=== PATIENT | male | born 1950 | race Caucasian/White ===

== ENCOUNTER 2022-02-28 09:30 | Outpatient (CLI) | payer MEDICARE, BC, SELFPAY ==
[2022-02-28 11:40] LABS: Albumin* 4.5 g/dL (3.3-5.0); Chloride* 105 mmol/L (96-114)
[2022-02-28 11:41] LABS: Sodium* 139 mmol/L (135-149)
[2022-02-28 11:43] LABS: Alkaline Phosphatase* 77 U/L (40-150); Aspartate Amino Transferase* 28 U/L (12-35); Bilirubin Total* 0.7 mg/dL (0.1-1.5); Blood Urea Nitrogen* 12 mg/dL (7-30); Carbon Dioxide* 25 mmol/L (20-32); Cholesterol* 207 mg/dL (90-199); Creatinine* 0.8 mg/dL (0.5-1.5); Estimated Glomerular Filt Rate 95 ml/min; Glucose* 99 mg/dL (60-115); Total Protein* 7.5 g/dL (6.0-8.3); Triglycerides* 104 mg/dL (40-149)
[2022-02-28 11:44] LABS: Alanine Aminotransferase* 23 U/L (4-50); Calcium* 9.1 mg/dL (8.4-10.6); HDL Cholesterol* 63 mg/dL (>=40); LDL Cholesterol Calculated 123 mg/dL (<100)
== END 2022-02-28 09:31 | disposition home or self-care (01) ==
LOC: NFLDREF 09:31
PROVIDERS: PCP Family Medicine; Visit Provider Family Medicine
DX: Z00.00 Encounter for general adult medical examination without abnormal findings (principal); N40.0 Benign prostatic hyperplasia without lower urinary tract symptoms; E78.5 Hyperlipidemia, unspecified
CPT/HCPCS: 80053; 80061; 84153

== ENCOUNTER 2022-06-29 10:00 | Outpatient (CLI) | payer MEDICARE, BC, SELFPAY ==
--- NOTE | 2022-06-29 10:15 | CRLHL7_ITS ---
For Patients: As a result of the Century Cures Act, medical imaging exams and procedure reports are released immediately into your electronic medical record. You may view this report before your referring provider. If you have questions, please contact your health care provider. INDICATION: Lumbar radiculopathy. TECHNIQUE: Sagittal and axial T1, sagittal and axial T2 and sagittal STIR images are obtained. FINDINGS: The sagittal alignment lumbar spine within normal limits. No compression fractures. No paraspinal mass or abnormal fluid collection. The conus medullaris appears normal and terminates normally at the L1 level. At T12-L1 anterior marginal osteophytes. No posterior disc herniation or stenosis the spinal canal or neural foramen. No disc herniation or stenosis at the L1-2 or L2-3 levels. At L3-4 degenerative disc desiccation and mild annular bulging. Moderate facet arthropathy with some thickening of ligamentum flavum. The eyes mild spinal canal narrowing lateral recesses and the neural foramen are adequately patent. At L4-5 degenerative disc desiccation. Circumferential annular bulge with central disc protrusion. Severe bilateral facet arthropathy with anterior facet spurs and prominent thickening of ligamentum flavum combine to cause severe central spinal canal stenosis. There is lateral recess stenosis with impingement of traversing bilateral L5 nerve roots. Mild to moderate bilateral neural foraminal narrowing as well. At L5-S1 normal disc height and disc hydration. No disc herniation. Moderate bilateral facet arthropathy without stenosis of the spinal canal or neural foramen. Mild degenerative changes of bilateral sacroiliac joints. IMPRESSION: 1. At L4-5, there is severe central spinal canal stenosis, lateral recess stenosis with impingement of traversing nerve roots. 2. Mild central stenosis at L3-4. 3. Multilevel lumbar facet arthropathy is most severe at L4-5. Dictated by Saji Vasques MD @ 06/29/2022 12:22:52 PM (Electronically Signed)
== END 2022-06-29 10:01 | disposition home or self-care (01) ==
LOC: MRI 10:03
PROVIDERS: PCP Family Medicine; Visit Provider Family Medicine
DX: M54.16 Radiculopathy, lumbar region (principal); M48.061 Spinal stenosis, lumbar region without neurogenic claudication
CPT/HCPCS: 72148

== ENCOUNTER 2022-07-21 10:19 | Outpatient (CLI) | payer MEDICARE, BC, SELFPAY | END 2022-07-21 10:20 | disposition home or self-care (01) | PROVIDERS: PCP Family Medicine; Visit Provider Surgery | DX: K22.70 Barrett's esophagus without dysplasia (principal); K22.89 Other specified disease of esophagus; K44.9 Diaphragmatic hernia without obstruction or gangrene | CPT/HCPCS: 43239; 88305; J1200; J2250; J3010 ==

== ENCOUNTER 2022-09-15 08:45 | Outpatient (RCR) | payer MEDICARE, BC, SELFPAY ==
--- NOTE | 2022-08-02 07:15 | PT.OPEX ---
[facility] Eval PT [facility] Outpatient Eval Start: 08/01/22 13:44 Freq: Status: Active Protocol: Document 08/01/22 13:44 ARR (Rec: 08/01/22 14:48 ARR [id number]) E-signed By Yani Wang DPT Physical Therapy Outpatient Evaluation Insurance Information Insurance Name Medicare B,[employer] Medical Diagnosis M54.16 lumbar radiculopathy Treating Diagnosis M54.16 lumbar radiculopathy M48.06 lumbar spinal stenosis M79.605 pain in left leg M79.604 pain in right leg Subjective Subjective Had PT last November - helped but as condition worsened so last Apr symptoms were unbearable. Last Monday had x 2 epidural injections at [place]. Monday had no leg pain, slight tingling. Today symptoms have returned slightly more. Last Spring symptoms were primarily in back. Currently even standing a few minutes legs will hurt and get tingling/ hurt. Is active biking and walking but now can hardly walk for more than 5 minutes. Could stand <1 minutes. Sitting or supine minimal to no pain. Denies bucking or giving way no changes in bowel or bladder function. -Goals: to be able to walk and bike. Be able to be more active. -Location of pain: Starts in low back into bilateral buttocks, HS, calves. Also goes into the heel/foot. Symptoms bilateral with L>R. PMHx: LS MRI IMPRESSION: 1. At L4-5, there is severe central spinal canal stenosis, lateral recess stenosis with impingement of traversing nerve roots. 2. Mild central stenosis at L3 -4. 3. Multilevel lumbar facet arthropathy is most severe at L4-5 Hip X-ray IMPRESSION: Vascular calcifications in the aorta. Mild facet degeneration lower lumbar spine without spondylolisthesis. No fracture . Multilevel discogenic spurring most prominent at L3- 4. Relative preservation of the disc spaces. SI joints normal. Degenerative joint disease right hip. Objective Functional Test Performed & Score Posture: R lateral trunk lean at rest, loss of LS lordosis, inc'd posterior prominence of R TS, inc'd TS kyhposis Palpation: no significant TTP SLS (30 sec): 30 sec bilat mild pelvic drop RANGE OF MOTION: Lumbar ROM: -Flx: reduced with fingertips to mid yoder. dec'd mobility into LS. No changes in distal pain. Increased prominence of posterior ribcage on R -Ext: 75% limitation into LS no changes in distal pain -R Rot: 50% limited -L Rot: 50% limited -R Sidebend: fingertips to lateral jt line no changes in distal pain -L Sidebend: fingertips to lateral jt line no changes in distal pain LE ROM (R/L): -Hip ER90: 40 R/L -Hip IR90: 10 R / 30 L -Hip flex: 90 R />120 L STRENGTH: LE Strength (R/L) -GLut medius: 3- R, 3 L LE Dermatome: -L2: Sensation Intact/Strength Tests Strong (hip flexion) -L3: Sensation Intact/Strength Tests Strong (quad / adductors) -L4: Sensation Intact/Strength Tests Strong (ant tib) -L5: Sensation Intact/Strength Tests Strong (EHL / peroneals / glut med) -S1: Sensation Intact/Strength Tests Strong (gastroc / HS) -S2: Sensation Intact/Strength Tests Strong (glut max) SPECIAL TESTS: Reflexes (R/L) -Patella: 2+ -Achilles: 2+ Other Nerve tests: -Heel walks and toe walks neg bilat -Babinski: neg bilat -Clonus neg bilat -Passive SLR pos bilat for thigh pain increased with passive ankle DF. Limited at 40* bilat -Crossed SLR neg LE Flexibility (R/L) -Hamstring: pos bilat -Piriformis: pos bilat -Prone knee bend: not tested -Hip abd: pos R -Abiodun Test: pos bilat in sidelying - Sherif?s Test pos bilat - Gastroc: pos bilat Hip (R/L): -Hip Scour: pos R -FADIR: Pos R Assessment Assessment/Impression Pt is a 71 y/o male who presents with concerns of bilateral leg pain with LS MR imaging notable for findings at L4-5, there is severe central spinal canal stenosis, lateral recess stenosis with impingement of traversing nerve roots, and multilevel lumbar facet arthropathy is most severe at L4-5. Hip X-ray notable for degenerative changes. Signs and symptoms consistent with imaging findings above for LS indicating lumbar spinal stenosis with loss of AROM Following capsular pattern. Patient also has notable objective findings including glut weakness, notable R hip ROM loss following capsular pattern, hip flexor tightness bilat, and adverse neural tension also likely contributing to the problem. Patient is a good candidate for skilled therapy to target deficits described above. Skilled PT intervention is necessary for use of therapeutic exercise manual therapy, neuromuscular re- education, gait training, and therapeutic activity. Functional impairments include difficulty with: standing and walking. See appropriate sections of PT eval for complete list of goals and POC . D/C plan and criteria is for pt to achieve the goals as listed below or until max rehab potential is met. Pt was agreeable with plan of care and goals established. 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/symptoms 2) Pt will report pain not to extend past knees to demonstrate reduced neural sensitivity to improve ease of ADLs 3) Pt will report ability to walk at least 20 minutes before onset of distal symptoms for improved community mobility 4) Pt will report at least 50% improvement in pain/symptoms since start of PT for return to PLOF 5) Patient will demonstrate passive SLR at least 60* for improved neural mobility Treatment Plan/Direct Interventions Electrical Stimulation,Gait Training,Joint Mobilization, Manual Therapy,Neuromuscular Re-ed,Self-Care/Home Management,Therapeutic Activities,Therapeutic Exercises,Traction (Mechanical ),Ultrasound Frequency/Duration 2x/wk for total of 20 visits in 90 days Patient Will Be Discharged From Therapy Skills Plateau,Independent w/ HEP Evaluation Billing Untimed Code Treatment Minutes 25 Complexity Low Certification Information Initial Certification Date 08/01/22 Ending Certification Date 10/30/22 Provider Signature Shows Agreement With POC & Medical Necessity Physician Signature & Date Requested Please Sign/Date Here Physician Comment/Change : Physician NPI Number #
== END 2022-09-20 15:04 | disposition home or self-care (01) ==
PROVIDERS: PCP Family Medicine; Visit Provider Family Medicine
DX: M54.16 Radiculopathy, lumbar region (principal); Z51.89 Encounter for other specified aftercare
CPT/HCPCS: 97012; 97110; 97112; 97140; 97161

== ENCOUNTER 2023-05-03 08:51 | Outpatient (CLI) | payer MEDICARE, BC, SELFPAY | END 2023-05-03 08:52 | disposition home or self-care (01) | LOC: NFLDREF 05-06 17:35 | PROVIDERS: PCP Family Medicine; Referring Provider Family Medicine; Visit Provider Family Medicine | DX: Z00.00 Encounter for general adult medical examination without abnormal findings (principal); E78.5 Hyperlipidemia, unspecified; N40.0 Benign prostatic hyperplasia without lower urinary tract symptoms; Z12.5 Encounter for screening for malignant neoplasm of prostate | CPT/HCPCS: 80053; 80061; 84153 ==

== ENCOUNTER 2023-12-19 15:39 | Emergency (ER) | payer MEDICARE, BC, SELFPAY ==
[2023-12-19] VITALS (54 sets, daily range): BP systolic 99–164; BP diastolic 57–90; PULSE 60–149; RESP 13–20; TEMP 36.6; O2SAT 95–100; BMI 22.8
--- NOTE | 2023-12-19 16:05 | ED_ITS ---
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 Patient notes no previous history of cardiac disease and today while at rest had the sudden onset of a rapid heart rate that seemed irregular. He states he walked to his neighbor's house and during that time he was short of breath and very fatigued and felt like his legs were weak. He denies any chest pain at this time. Unfortunately the rapid heart rate continued and thus he came to the emergency room. He has never had any arrhythmia or heart issue in the past. He notes no previous occurrences such as this over the past week. He has not had fever cough cold or congestion. Denies calf tenderness or recent extended periods of inactivity and has not had DVT in the past. He had a very small amount of alcohol excited her last night. He did take cetirizine earlier today. He does not use in excess of amount of caffeine Related Data Home Medications ?Medication ?Instructions ?Recorded ?Confirmed B-complex with vitamin C 1 cap PO QDAY 03/02/22 12/19/23 aspirin 325 mg tablet 325 mg PO QDAY 03/02/22 12/19/23 coenzyme Q10 100 mg capsule mg PO DAILY 03/02/22 05/16/23 lactobacillus combination no.9 PO DAILY 03/02/22 05/16/23 saw palmetto 160 mg capsule 160 mg PO QDAY 03/02/22 12/19/23 fluticasone propionate 220 220 mcg inhalation BID 12/19/23 12/19/23 mcg/actuation HFA aerosol inhaler multivitamin with minerals 1 tab PO BID 12/19/23 12/19/23 saw palmetto 450 mg capsule 450 mg PO BID 12/19/23 12/19/23 sodium hyaluronate 20 mg capsule 100 mg PO DAILY 12/19/23 12/19/23 vitamin D3 125 mcg (5,000 1 cap PO Q OTHER DAY 12/19/23 12/19/23 unit)-vitamin K2 100 mcg capsule Previous Rx's ?Medication ?Instructions ?Recorded albuterol sulfate 2.5 mg/3 mL 2.5 mg (3 mL) inhalation Q4-6H PRN 05/16/23 (0.083 %) solution for nebulization shortness of breath or wheezing #90 mL albuterol sulfate 90 mcg/actuation 2 puff inhalation .Up To 4 Times 05/16/23 aerosol inhaler Daily #8.5 grams omeprazole 20 mg capsule,delayed 20 mg PO QDAY #90 caps 05/16/23 release rosuvastatin 5 mg tablet 5 mg PO QDAY #90 tabs 05/16/23 apixaban 5 mg tablet 5 mg PO BID #60 tabs 12/19/23 Allergies Allergy/AdvReac Type Severity Reaction Status Date / Time No Known Drug Allergies Allergy Verified 05/16/23 13:09 Review of Systems Status of ROS: Reports: 10 or more systems reviewed and unremarkable except as noted in History and below Const: Denies: fever or chills Eyes: Denies: change in vision ENMT: Denies: neck pain or nasal congestion Cardio: Reports: palpitations, lightheadedness and shortness of breath with exertion; Denies: chest pain or swelling of feet/ankles Resp: Reports: shortness of breath; Denies: cough or wheezing GI: Denies: abdominal pain, nausea or vomiting Musculo: Denies: neck pain Integ/Breast: Denies: rash Neuro: Denies: headache Allergy/Immuno: Denies: wheezing PFSH [facility] Medical History Tinnitus ?H93.19 - Tinnitus, unspecified ear (ICD-10) Yarbrough's esophagus ?K22.70 - Yarbrough's esophagus without dysplasia (ICD-10) Asthma ?J45.909 - Unspecified asthma, uncomplicated (ICD-10) Acne ?L70.9 - Acne, unspecified (ICD-10) GERD (gastroesophageal reflux disease) ?K21.9 - Gastro-esophageal reflux disease without esophagitis (ICD-10) Hyperlipidemia ?E78.5 - Hyperlipidemia, unspecified (ICD-10) Surgical History History of thumb surgery ?Z98.890 - Other specified postprocedural states (ICD-10) Status post bilateral hernia repair ?Z98.890 - Other specified postprocedural states (ICD-10) ?Z87.19 - Personal history of other diseases of the digestive system (ICD-10) Social History Smoking Status: Never smoker Little interest or pleasure in doing things: not at all Feeling down, depressed, or hopeless: not at all Exam Narrative: Exam Narrative: Patient is alert and oriented. Very well-spoken gentleman. External ears eyes nose clear. Heart with a rapid heart rate but normal rhythm. Lungs are clear bilaterally. Abdomen soft nontender. Calves are without tenderness negative Homans sign and there is no edema. Moving all extremities and mentating normally. Const: Vital Signs, click to edit/add: Vital Signs - 24 hr 12/19/23 15:51 12/19/23 15:52 12/19/23 15:53 Temperature 98 F Pulse Rate 142 H 143 H Pulse Rate [Pulse Oximeter] 142 H Respiratory Rate 18 Blood Pressure 164/84 H Blood Pressure [Ri ght Upper Arm] 164/84 H Pulse Oximetry 100 99 99 Oxygen Delivery Me thod Room Air Oxygen Flow Rate 12/19/23 16:00 12/19/23 16:11 12/19/23 16:15 Temperature Pulse Rate 144 H 146 H 145 H Pulse Rate [Pulse Oximeter] Respiratory Rate Blood Pressure 130/90 H Blood Pressure [Ri ght Upper Arm] Pulse Oximetry 100 99 98 Oxygen Delivery Me thod Oxygen Flow Rate 12/19/23 16:30 12/19/23 16:32 12/19/23 16:45 Temperature Pulse Rate 144 H 148 H 149 H Pulse Rate [Pulse Oximeter] Respiratory Rate Blood Pressure 131/78 Blood Pressure [Ri ght Upper Arm] Pulse Oximetry 97 97 98 Oxygen Delivery Me thod Oxygen Flow Rate 12/19/23 17:00 12/19/23 17:02 12/19/23 17:03 Temperature Pulse Rate 146 H 145 H 121 H Pulse Rate [Pulse Oximeter] Respiratory Rate 16 Blood Pressure 101/81 Blood Pressure [Ri ght Upper Arm] Pulse Oximetry 98 98 99 Oxygen Delivery Me thod Oxygen Flow Rate 12/19/23 17:15 12/19/23 17:32 12/19/23 17:45 Temperature Pulse Rate 124 H 116 H 123 H Pulse Rate [Pulse Oximeter] Respiratory Rate Blood Pressure Blood Pressure [Ri ght Upper Arm] Pulse Oximetry 99 98 98 Oxygen Delivery Me thod Oxygen Flow Rate 12/19/23 18:00 12/19/23 18:02 12/19/23 18:15 Temperature Pulse Rate 122 H 127 H 134 H Pulse Rate [Pulse Oximeter] Respiratory Rate Blood Pressure 112/81 Blood Pressure [Ri ght Upper Arm] Pulse Oximetry 99 100 100 Oxygen Delivery Me thod Oxygen Flow Rate 12/19/23 18:30 12/19/23 18:32 12/19/23 18:39 Temperature Pulse Rate 124 H 110 H 103 H Pulse Rate [Pulse Oximeter] Respiratory Rate Blood Pressure 119/62 101/65 Blood Pressure [Ri ght Upper Arm] Pulse Oximetry 99 98 97 Oxygen Delivery Me thod Oxygen Flow Rate 12/19/23 18:45 12/19/23 19:00 12/19/23 19:02 Temperature Pulse Rate 109 H 107 H 100 Pulse Rate [Pulse Oximeter] Respiratory Rate 16 Blood Pressure 111/71 Blood Pressure [Ri ght Upper Arm] Pulse Oximetry 98 98 98 Oxygen Delivery Me thod Oxygen Flow Rate 12/19/23 19:15 12/19/23 19:24 12/19/23 19:30 Temperature Pulse Rate 98 110 H 105 H Pulse Rate [Pulse Oximeter] Respiratory Rate Blood Pressure 114/79 Blood Pressure [Ri ght Upper Arm] Pulse Oximetry 98 98 98 Oxygen Delivery Me thod Oxygen Flow Rate 12/19/23 19:31 12/19/23 19:45 12/19/23 19:47 Temperature Pulse Rate 96 119 H 97 Pulse Rate [Pulse Oximeter] Respiratory Rate Blood Pressure 101/60 113/69 Blood Pressure [Ri ght Upper Arm] Pulse Oximetry 97 97 98 Oxygen Delivery Me thod Oxygen Flow Rate 12/19/23 20:00 12/19/23 20:02 12/19/23 20:15 Temperature Pulse Rate 97 108 H 95 Pulse Rate [Pulse Oximeter] Respiratory Rate Blood Pressure 112/65 Blood Pressure [Ri ght Upper Arm] Pulse Oximetry 98 98 97 Oxygen Delivery Me thod Oxygen Flow Rate 12/19/23 20:16 12/19/23 20:17 12/19/23 20:30 Temperature Pulse Rate 106 H 90 Pulse Rate [Pulse Oximeter] Respiratory Rate 18 Blood Pressure 115/68 Blood Pressure [Ri ght Upper Arm] Pulse Oximetry 98 95 Oxygen Delivery Me thod Oxygen Flow Rate 12/19/23 20:31 12/19/23 20:45 12/19/23 20:46 Temperature Pulse Rate 102 H 86 109 H Pulse Rate [Pulse Oximeter] Respiratory Rate Blood Pressure 120/87 129/75 Blood Pressure [Ri ght Upper Arm] Pulse Oximetry 95 98 95 Oxygen Delivery Me thod Oxygen Flow Rate 12/19/23 21:08 12/19/23 21:15 12/19/23 21:19 Temperature Pulse Rate 97 98 92 Pulse Rate [Pulse Oximeter] Respiratory Rate Blood Pressure Blood Pressure [Ri ght Upper Arm] Pulse Oximetry 98 96 96 Oxygen Delivery Me thod Oxygen Flow Rate 12/19/23 21:30 12/19/23 21:34 12/19/23 21:45 Temperature Pulse Rate 80 93 90 Pulse Rate [Pulse Oximeter] Respiratory Rate Blood Pressure Blood Pressure [Ri ght Upper Arm] Pulse Oximetry 96 97 97 Oxygen Delivery Me thod Oxygen Flow Rate 12/19/23 22:01 12/19/23 22:07 12/19/23 22:15 Temperature Pulse Rate 90 95 92 Pulse Rate [Pulse Oximeter] Respiratory Rate 18 Blood Pressure 99/62 Blood Pressure [Ri ght Upper Arm] Pulse Oximetry 97 97 98 Oxygen Delivery Me thod Oxygen Flow Rate 12/19/23 22:30 12/19/23 22:42 12/19/23 22:44 Temperature Pulse Rate 92 93 105 H Pulse Rate [Pulse Oximeter] Respiratory Rate 18 17 Blood Pressure 120/82 130/67 Blood Pressure [Ri ght Upper Arm] Pulse Oximetry 98 98 100 Oxygen Delivery Me thod Oxygen Flow Rate 12/19/23 22:45 12/19/23 22:50 12/19/23 23:00 Temperature Pulse Rate 94 68 Pulse Rate [Pulse Oximeter] Respiratory Rate 13 15 Blood Pressure 104/57 L Blood Pressure [Ri ght Upper Arm] Pulse Oximetry 100 99 99 Oxygen Delivery Me thod Nasal Cannula Oxygen Flow Rate 2 12/19/23 23:00 Temperature Pulse Rate 60 Pulse Rate [Pulse Oximeter] Respiratory Rate 20 Blood Pressure Blood Pressure [Ri ght Upper Arm] Pulse Oximetry 97 Oxygen Delivery Me thod Oxygen Flow Rate Documenting provider has reviewed patient's vital signs: yes Course Course ED Course: Differential diagnosis includes but is not limited to MD, electrolyte imbalance, medication reaction, pneumonia, COVID, congestive heart failure. At this time patient has no overt signs of failure and no chest pain. EKG shows a heart rate of 143. Will check labs to include CBC, comprehensive panel, D-dimer, troponin. Will also obtain chest x-ray. Reevaluation(s) Reevaluation #1: At this time patient has not had improvement is heart rate. Will give him a bolus of Cardizem 10 mg IV. Heart rate improved to 90-110 but patient is now appears to be atrial fibrillat ion on EKG. We will initiate Cardizem infusion. I am hopeful that this gentleman will convert. Vital Signs Vital signs: Initial Vital Signs Pulse Rate 142 H 12/19/23 15:51 Blood Pressure 164/84 H 12/19/23 15:51 Blood Pressure Mean 110 H 12/19/23 15:51 Pulse Oximetry 100 12/19/23 15:51 Vital Signs Pulse Rate 142 H 12/19/23 15:51 Blood Pressure 164/84 H 12/19/23 15:51 Pulse Oximetry 100 12/19/23 15:51 Temperature 98 F 12/19/23 15:53 Pulse Rate 60 12/19/23 23:00 Respiratory Rate 20 12/19/23 23:00 Blood Pressure 104/57 L 12/19/23 22:50 Pulse Oximetry 97 12/19/23 23:00 Oxygen Delivery Method Nasal Cannula 12/19/23 23:00 Oxygen Flow Rate 2 12/19/23 23:00 Medications Administered Medications: Generic Name Dose Route Start Last Admin Trade Name Freq PRN Reason Stop Dose Admin Diltiazem HCl 125 mg/ Sodium 125 mls @ 10 mls/hr 12/19/23 19:03 12/19/23 22:41 Chloride IVPB 15 mls/hr .TITRATE TRAE Infusion Protocol Discontinued Medications Generic Name Dose Route Start Last Admin Trade Name Freq PRN Reason Stop Dose Admin Diltiazem HCl 10 mg 12/19/23 18:27 12/19/23 18:33 Diltiazem 5 Mg/Ml Inj IVP 12/19/23 18:28 10 mg ONCE ONE Administration Sodium Chloride 1,000 mls @ 1,000 mls/hr 12/19/23 16:35 06/04/24 17:28 0.9 % Sodium Chloride 1000 Ml IV 12/19/23 17:34 Infused .Q1H TRAE Infusion MDM - Arrhythmia/Palpitations MDM Narrative Medical decision making narrative: 1. Atrial fibrillation with RVR-patient initially received Cardizem bolus which brought heart rate down but did not convert patient. He then received infusion and unfortunately patient experienced persistent atrial fibrillation. I did speak with cardiology and we reviewed patient labs exam and history. At this time they do agree that cardioversion is appropriate. 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 Informed consent was done. Anesthesia assisted us. Patient is now in normal sinus rhythm. Per cardiology they do request patient start on an anticoagulant. Apixaban 5 mg p.o. b.i.d. is suggested. First dose here in the emergency room. I will have patient discontinue his aspirin at this time. 2. History of Lyme disease-patient is wondering if his arrhythmia is from a Lyme disease which was diagnosed in October. Patient did have a bull's-eye lesion and was treated with 10 days of doxycycline. He is wondering if he should repeat this dose of doxycycline. I did explain that usually there is a AV node block or pericarditis or carditis and this only occurs 1% of the time. I cannot recommend a treating again with antibiotics at this time. 2. Disposition-home at this time. Suggest apixaban for 1 month by cardiology. A they are requesting a follow-up echocardiogram and an appointment with Cardiology. Echocardiogram can be arranged through primary MD. Return to the emergency room for worsening symptoms and as needed. Medical Records Attestation: I reviewed the patient's medical records. Lab Data Attestation: I reviewed the patient's lab results. Labs: Lab Results 12/19/23 12/19/23 Range/Units 16:35 20:35 WBC 8.94 (4.50-11.00) K/uL RBC 5.36 (4.30-5.90) m/uL Hgb 16.2 (13.5-17.5) gm/dL Hct 47.8 (37.0-53.0) % MCV 89 (80-100) fL MCH 30 (26-34) pg MCHC 34 (32-36) gm/dL RDW Coeff of Nupur 12.6 (11.5-15.5) % Plt Count 295 (140-440) K/uL Neut % (Auto) 74.8 H (42.0-72.0) % Lymph % (Auto) 16.1 L (20-44) % [place] % (Auto) 5.8 (0.0-11.0) % Eos % (Auto) 2.6 (0.0-7.0) % Baso % (Auto) 0.6 (0.0-3.0) % Neut # (Auto) 6.70 (1.7-7.0) K/uL Lymph # (Auto) 1.40 (0.90-2.90) K/uL [place] # (Auto) 0.50 (0.00-0.90) K/UL Eos # (Auto) 0.23 (0.00-0.50) K/uL Baso # (Auto) 0.05 (0.00-0.30) K/uL Abs Immat Gran (auto) 0.01 (0.00-0.30) K/uL Imm/Tot Granulo (auto) 0.1 % D-Dimer Quant (PE/DVT) 0.34 (0.00-0.50) ug/ml Sodium 140 (135-149) mmol/L Potassium 3.6 (3.6-5.1) mmol/L Chloride 107 (96-114) mmol/L Carbon Dioxide 25 (20-32) mmol/L Anion Gap 8 (7-15) mEq/L BUN 19 (7-30) mg/dL Creatinine 0.9 (0.5-1.5) mg/dL Estimated Creat Clear 63.31 Estimated GFR 90 ml/min Glucose 124 H (60-115) mg/dL Calcium 9.5 (8.4-10.6) mg/dL Magnesium 2.1 (1.5-2.6) mg/dL TSH 1.760 (0.270-4.200) uIU/mL POC Troponin I 0.01 0.05 H (0.01-0.04) ng/ml Imaging Data Chest x-ray: Attestation: I have reviewed the pertinent imaging results. My impression: I do not note widened mediastinum or evidence of pneumonia. Radiologist's impression: AP radiographs of the chest were performed. Comparison: 08/09/2021. The lungs appear clear and no pleural effusions are identified. The cardiomediastinal silhouette and pulmonary vasculature appear normal, as do the visualized bones. IMPRESSION: No acute intrathoracic abnormality identified. ECG Data Attestation: I personally reviewed and interpreted this ECG as follows: ECG interpretation date: 12/19/23 Interpretation: Initial EKG shows a rapid narrow QRS rhythm. Initially I thought this may be a is supraventricular tachycardia but also wondering about the possibility of atrial flutter. 2. Second EKG by my read shows AFib with RVR at a rate of 148. Nonspecific T- wave changes are present. 3. Thirty EKG shows AFib with RVR at a rate of 102. I do not note any acute ST or T-wave changes. 4. Fourth EKG post cardioversion shows sinus bradycardia at a rate of 59. No acute ST or T-wave changes are noted. Normal FL interval as well as QT. Discharge Plan Discharge Clinical Impression: Atrial fibrillation with rapid ventricular response Patient Disposition: Home, Self-Care Condition: Improved Additional Instructions: Cardiology recommends apixaban twice daily for 1 month. They are recommending that you follow-up with your primary MD to be scheduled for an echocardiogram and a follow-up appointment with Cardiology after the completion of that test. Avoid all alcohol. Keep well hydrated. Return to the emergency room with rapid heart rate. At this time recommend against any further antibiotics with your history of Lyme disease. Prescriptions: New apixaban 5 mg tablet 5 mg PO BID Qty: 60 2RF No Action aspirin 325 mg tablet 325 mg PO QDAY coenzyme Q10 100 mg capsule PO DAILY saw palmetto 160 mg capsule 160 mg PO QDAY Rx Instructions: give with meal/snack B-complex with vitamin C Capsule 1 cap PO QDAY lactobacillus combination no.9 [Adult 50 Plus Probiotic] PO DAILY omeprazole 20 mg capsule,delayed release(DR/EC) 20 mg PO QDAY Qty: 90 3RF rosuvastatin 5 mg tablet 5 mg PO QDAY Qty: 90 3RF albuterol sulfate 90 mcg/actuation HFA aerosol inhaler 2 puff inhalation .Up To 4 Times Daily Qty: 8.5 5RF albuterol sulfate 2.5 mg /3 mL (0.083 %) solution for nebulization 2.5 mg inhalation Q4-6H PRN (Reason: shortness of breath or wheezing) Qty: 90 3RF saw palmetto 450 mg capsule 450 mg PO BID Rx Instructions: give with food (meal/snack) fluticasone propionate 220 mcg/actuation HFA aerosol inhaler 220 mcg inhalation BID sodium hyaluronate 20 mg capsule 100 mg PO DAILY multivitamin with minerals Tablet 1 tab PO BID vitamin D3-vitamin K2 125 mcg (5,000 unit)-100 mcg capsule 1 cap PO Q OTHER DAY Follow Up/Referrals: Laron Hernandez MD [Primary Care Provider] - Stand Alone Forms: My-Apps Info Instructions
--- NOTE | 2023-12-19 16:43 | CRLHL7_ITS ---
For Patients: As a result of the Cures Act, medical imaging exams and procedure reports are released immediately into your electronic medical record. You may view this report before your referring provider. If you have questions, please contact your health care provider. INDICATION: RAPID HEART RATE CHEST, ONE VIEW AP radiographs of the chest were performed. Comparison: 08/09/2021. The lungs appear clear and no pleural effusions are identified. The cardiomediastinal silhouette and pulmonary vasculature appear normal, as do the visualized bones. IMPRESSION: No acute intrathoracic abnormality identified. KAYLENE CESAR MD [facility] Dictated by: Etienne Cesar MD @ 12/19/2023 19:20:08 (Electronically Signed)
[2023-12-19] MEDS: 0.9 % SODIUM CHLORIDE 1000 ml 1,000 ML IV (16:52)
[2023-12-19 16:55] LABS: Troponin, Point-of-Care* 0.01 ng/ml (0.01-0.04)
[2023-12-19 16:56] LABS: Basophils Absolute Auto 0.05 K/uL (0.00-0.30); Basophils Percent Auto 0.6 % (0.0-3.0); Eosinophils Absolute Auto 0.23 K/uL (0.00-0.50); Eosinophils Percent Auto 2.6 % (0.0-7.0); Hematocrit 47.8 % (37.0-53.0); Hemoglobin* 16.2 gm/dL (13.5-17.5); Immature Granulocytes Abs Auto 0.01 K/uL (0.00-0.30); Immature Granulocytes Pct Auto 0.1 %; Lymphocytes Percent Auto 16.1 % (20-44); Mean Corpuscular HGB Conc 34 gm/dL (32-36); Mean Corpuscular Hemoglobin 30 pg (26-34); Mean Corpuscular Volume 89 fL (80-100); Monocytes Percent Auto 5.8 % (0.0-11.0); Neutrophils Percent Auto 74.8 % (42.0-72.0); Platelet Count* 295 K/uL (140-440); RDW Coefficient of Variation % 12.6 % (11.5-15.5); Red Blood Count 5.36 m/uL (4.30-5.90); White Blood Count* 8.94 K/uL (4.50-11.00)
[2023-12-19 17:04] LABS: Slide Review Reflex No
[2023-12-19 17:13] LABS: Chloride* 107 mmol/L (96-114)
[2023-12-19 17:14] LABS: Potassium* 3.6 mmol/L (3.6-5.1); Sodium* 140 mmol/L (135-149)
[2023-12-19 17:16] LABS: Creatinine* 0.9 mg/dL (0.5-1.5); Est. Creatinine Clearance* 63.31; Estimated Glomerular Filt Rate 90 ml/min
[2023-12-19 17:17] LABS: Anion Gap 8 mEq/L (7-15); Blood Urea Nitrogen* 19 mg/dL (7-30); Calcium* 9.5 mg/dL (8.4-10.6); Carbon Dioxide* 25 mmol/L (20-32); D Dimer Quantitative* 0.34 ug/ml (0.00-0.50); Glucose* 124 mg/dL (60-115)
[2023-12-19 17:22] LABS: Magnesium* 2.1 mg/dL (1.5-2.6)
[2023-12-19] MEDS: dilTIAZem 5 MG/ML inj 10 MG IVP (18:33)
[2023-12-19] MEDS: dilTIAZem HCL 125 MG in 0.9 % SODIUM CHLORIDE 100 ml 100 ML 10 MG IVPB ×2 (19:31→20:45)
[2023-12-19 21:13] LABS: Troponin, Point-of-Care* 0.05 ng/ml (0.01-0.04)
--- NOTE | 2023-12-19 22:58 | P.ANES_ITS ---
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
--- NOTE | 2023-12-19 22:58 | W.ANESCHARGE ---
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
[2023-12-19] MEDS: APIXABAN 5 MG TABLET PO (23:45)
== END 2023-12-19 23:53 | disposition home or self-care (01) ==
PROVIDERS: Emergency Provider Family Medicine; PCP Family Medicine
DX: I48.91 Unspecified atrial fibrillation (principal)
CPT/HCPCS: 92960; 00410; 36415; 71045; 80048; 83735; 84443; 84484; 85025; 85379; 93005; 94761; 99100; 99140; 99284; 99285; A9270; J2704; J3490; J7030

== ENCOUNTER 2023-12-27 12:48 | Outpatient (CLI) | payer MEDICARE, BC, SELFPAY | END 2023-12-27 12:49 | disposition home or self-care (01) | PROVIDERS: PCP Family Medicine; Visit Provider Family Medicine | DX: I48.91 Unspecified atrial fibrillation (principal); I35.1 Nonrheumatic aortic (valve) insufficiency; I34.0 Nonrheumatic mitral (valve) insufficiency | CPT/HCPCS: 93306 ==

== ENCOUNTER 2024-05-22 09:27 | Outpatient (CLI) | payer MEDICARE, BC, SELFPAY | END 2024-05-22 09:28 | disposition home or self-care (01) | LOC: NFLDREF 05-23 08:22 | PROVIDERS: PCP Family Medicine; Referring Provider Family Medicine; Visit Provider Family Medicine | DX: E78.5 Hyperlipidemia, unspecified (principal); Z12.5 Encounter for screening for malignant neoplasm of prostate | CPT/HCPCS: 80053; 80061; G0103 ==

== ENCOUNTER 2024-05-29 15:46 | Outpatient (CLI) | payer MEDICARE, BC, SELFPAY ==
--- NOTE | 2024-05-29 15:45 | CRLHL7_ITS ---
For Patients: As a result of the Century Cures Act, medical imaging exams and procedure reports are released immediately into your electronic medical record. You may view this report before your referring provider. If you have questions, please contact your health care provider. INDICATION: Pain and swelling TECHNIQUE: Ultrasound venous duplex lower left extremity. Compression venous exam was performed using ash-scale, color Doppler, and spectral Doppler analysis. COMPARISON: None FINDINGS: Sonographic imaging demonstrates the left common femoral, deep femoral, superficial femoral, popliteal, posterior tibial and greater saphenous and the contralateral right common femoral veins to be fully compressible with normal color Doppler blood flow. IMPRESSION: No convincing radiographic evidence of deep vein thrombosis within the visualized left lower extremity. Dictated by Randy Kaplan MD @ 05/29/2024 7:40:06 PM (Electronically Signed)
--- OUTSIDE RECORDS SUMMARY | 2024-05-29 15:49 | XMS_ITS | Clinical Summary ---
Author Organization [facility] Address [place], [place] [address] Care Team Providers Care Spool Cleaner Hand Name Role Phone Alexis Carroll MD Primary Care Provider + [phone] Allergies Active Allergy Reactions Criticality Noted Date Comments Grass Pollen-[place], Standard Bronchospasm 04/15/2011 Horse/Equine Containing Products Bronchospasm 04/15/2011 Cats, Dogs, Dust mites, birds Mold Extracts Bronchospasm 04/15/2011 Penicillins *Unknown - Childhood Rxn 04/15/2011 Tree Nut Bronchospasm 04/15/2011 Tree pollens Medications Medication Sig Dispensed Refills Start Date End Date Status aspirin enteric coated (ECOTRIN) 325 mg tablet Take 1 tablet by mouth once daily with a meal. 0 04/15/2011 Active rosuvastatin (CRESTOR) 20 mg tablet Take 1 tablet by mouth at bedtime. 0 04/15/2011 Active omeprazole (PRILOSEC) 20 mg Delayed-Release capsuleIndications:B arrett's esophagus without dysplasia Take 1 capsule by mouth once daily before a meal. 30 capsule 04/18/2017 Active Active Problems Problem Noted Date Diagnosed Date Yarbrough's esophagus 06/02/2014 Overview (04/19/2017): EGD 05/2014 Yarbrough's, repeat EGD in 3 years EGD 04/2017 Yarbrough's, repeat EGD in 3 years Immunizations Name Administration Dates Next Due Influenza, IIV3 (Age >=3 years) 04/03/2011 Social History Tobacco Use Types Packs/Day Years Used Date Smoking Tobacco: Never Smokeless Tobacco: Never Tobacco Cessation:Counseling Given: No Alcohol Use Standard Drinks/Week Comments Not Asked 0 (1 standard drink = 0.6 oz pur e alcohol) Social Connections Answer Date Recorded Frequency of Communication with Friends and Fami ly Not on file 01/25/2024 Sex and Gender Information Value Date Recorded Sex Assigned at Not on file Gender Identity Not on file Sexual Orientation Not on file Obstetrics History Last Filed Vital Signs Vital Sign Reading Time Taken Comments Blood Pressure 105/56 04/22/2011 11:16 AM CDT Pulse 83 04/22/2011 11:16 AM CDT Temperature - - Respiratory Rate - - Oxygen Saturation - - Inhaled Oxygen Concentration - - Weight 68.5 kg (151 lb) 04/22/2011 11:16 AM CDT Height - - Body Mass Index - - Plan of Treatment Health Maintenance Due Date Last Done Comments Tdap 1961 Depression screening for age 12+ 1962 BMI (ht and wt on same day) for age 18+ 1968 Hepatitis C screening for ag e 18-79 1968 Tetanus booster 1970 Colonoscopy through age 75 09/18/1995 Lipids for age 45-75 09/18/1995 Zoster (shingles) series for age 50+ (1 of 2) 2000 Medicare Wellness for age 65+ 09/18/2015 Pneumococcal series for age 65+ (1 of 1 - PCV) 09/18/2015 COVID-19 vaccine series ( season) 2024 05/02/2023, 04/01/2022, 11/19/2021, Additional history exists Influenza for age 65+ 03/17/2024 04/03/2011 Care Teams Spool Cleaner Hand Relationship Specialty Start Date End Date Alexis Carroll MD [address] [phone] PCP - General 05/19/06
--- OUTSIDE RECORDS SUMMARY | 2024-05-29 15:49 | XMS_ITS ---
Author Organization [facility] Address [address] [place] [address] Care Team Providers Care Mrp Controller Name Role Phone Unavailable Unavailable Unavailable Surgery Details Not on file Complications Check Surgery Details section. Procedure Estimated Blood Loss Check Surgery Details section. Procedure Findings Check Surgery Details section. Procedure Specimens Taken Check Surgery Details section.
--- OUTSIDE RECORDS SUMMARY | 2024-05-29 15:49 | XMS_ITS | Clinical Summary ---
Author Organization [facility] Address [address] [place] [address] Care Team Providers Care Thermometer Tester Name Role Phone Unavailable Primary Care Provider Unavailabl e Source Comments Patient records contain information from all sites at [facility]. For routine questions regarding patient records, call [phone] during business hours, M-F 8:00 AM - 5:00 PM Central Time. Record requests for emergency care only can be directed to [phone] at any time.[facility] Allergies No known active allergies Medications * This document contains information received from the source organization and may not represent a complete record from that organization. No known medications Social History Tobacco Use Types Packs/Day Years Used Date Smoking Tobacco: Never Assessed [facility] Utilities Answer Date Recorded In the past 12 months has th e [employer], gas, oil, or water [employer] threatened to shut off services in your home? No 12/18/2023 Exercise Vital Sign Answer Date Recorde d On average, how many days pe r week do you engage in moderate to strenuous exercise (like a brisk walk)? 6 days 12/18/2023 On average, how many minutes do you engage in exercise at this level? 20 min 12/18/2023 Hunger Vital Sign Answer Date Recorded Within the past 12 months, y ou worried that your food would run out before you got the money to buy more. Never true 12/18/19 24 Within the past 12 months, t he food you bought just didn't last and you didn't have money to get more. Never true 12/18/2023 PRAPARE - Transportation Answer Date Re corded In the past 12 months, has l ack of transportation kept you from medical appointments or from getting medications? No 09/2023 In the past 12 months, has l ack of transportation kept you from meetings, work, or from getting things needed for daily living? No 12/18/2023 Nutrition Answer Date Recorded On average, how many serving s of fruits and vegetables do you eat per day (serving size is equal to 1 cup or approximately the size of a tennis ball)? 3-5 12/18/2023 Dental Answer Date Recorded Dental: Regular Dentist No 12/18/19 Employment Answer Date Recorded Employment status Retired 12/18/2023 Housing Stability Answer Date Recorded What is your living situation today? 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 Gender Identity Male 12/18/2023 8:55 AM CDT Sexual Orientation Choose not to disclose 2023 8:55 AM CDT Last Filed Vital Signs Vital Sign Reading Time Taken Comments Blood Pressure 135/73 07/29/2022 2:17 PM CABINET ASSEMBLER Pulse 79 07/29/2022 2:17 PM CABINET ASSEMBLER Temperature - - Respiratory Rate - - Oxygen Saturation 100% 07/29/2022 2:17 PM CABINET ASSEMBLER Inhaled Oxygen Concentration - - Weight - - Height - - Body Mass Index - - Plan of Treatment Health Maintenance Due Date Last Done Comments CT Colonography 1950 Cologuard 1950 Colonoscopy 1950 Colorectal Cancer Screening 1950 FIT 1950 Fasting Glucose for Diabetes Screening 1950 Hepatitis C Screening 1950 Depression Screening (Annual PHQ-2) 07/17/2023 Fall Risk Screen (Annual) 07/17/2023 COVID-19 Vaccine ( season) 2024 05/02/2023, 04/01/2022, 11/19/2021, Additional history exists Influenza Vaccine (#1) 2024 , 04/29/2022, 04/20/2021, Additional history exists DTaP,Tdap,and Td Vaccines (2 - Td or Tdap) 05/22/2025 05/22/2015 Pneumococcal vaccine (65+ years) Completed 01/30/2018, 11/28/2014 Zoster Vaccines Completed 04/03/2019, 02/2018, 01/30/2018 IPV Vaccines Aged Out No longer eligi ble based on patient's age to complete this topic Insurance [facility] MEDICARE
--- OUTSIDE RECORDS SUMMARY | 2024-05-29 15:49 | XMS_ITS | Referral Summary ---
Author Organization [facility] Address [address] [place] [address] Care Team Providers Care Stogy Maker Name Role Phone Unavailable Primary Care Provider Unavailabl e Source Comments Patient records contain information from all sites at [facility]. For routine questions regarding patient records, call [phone] during business hours, M-F 8:00 AM - 5:00 PM Central Time. Record requests for emergency care only can be directed to [phone] at any time.[facility] Allergies No known active allergies Medications * This document contains information received from the source organization and may not represent a complete record from that organization. No known medications Social History Tobacco Use Types Packs/Day Years Used Date Smoking Tobacco: Never Assessed [facility] Utilities Answer Date Recorded In the past 12 months has th e [employer], gas, oil, or water [employer] threatened to shut off services in your [...] your living situation today? 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
== END 2024-05-29 15:47 | disposition home or self-care (01) ==
LOC: US 15:47
PROVIDERS: PCP Family Medicine; Visit Provider Family Medicine
DX: M79.605 Pain in left leg (principal)
CPT/HCPCS: 93971

== ENCOUNTER 2024-07-25 08:45 | Outpatient (CLI) | payer MEDICARE, BC, SELFPAY | END 2024-07-25 08:46 | disposition home or self-care (01) | LOC: NFLDREF 08-05 14:34 | PROVIDERS: PCP Family Medicine; Referring Provider Family Medicine; Visit Provider Family Medicine | DX: E78.5 Hyperlipidemia, unspecified (principal) | CPT/HCPCS: 80061; 84450; 84460 ==

== ENCOUNTER 2024-11-13 08:10 | Outpatient (CLI) | payer MEDICARE, BC, SELFPAY | END 2024-11-13 08:11 | disposition home or self-care (01) | PROVIDERS: PCP Family Medicine; Referring Provider Family Medicine; Visit Provider Family Medicine | DX: E78.5 Hyperlipidemia, unspecified (principal) | CPT/HCPCS: 80061; 84450; 84460 ==

== ENCOUNTER 2025-01-30 08:11 | Outpatient (CLI) | payer MEDICARE, BC, SELFPAY | END 2025-01-30 08:12 | disposition home or self-care (01) | LOC: NFLDREF 02-01 08:32 | PROVIDERS: PCP Family Medicine; Referring Provider Family Medicine; Visit Provider Family Medicine | DX: E78.5 Hyperlipidemia, unspecified (principal) | CPT/HCPCS: 80061 ==

== ENCOUNTER 2025-06-11 07:59 | Outpatient (CLI) | payer MEDICARE, BC, SELFPAY | END 2025-06-11 08:00 | disposition home or self-care (01) | LOC: NFLDREF 06-17 09:03 | PROVIDERS: PCP Family Medicine; Referring Provider Family Medicine; Visit Provider Family Medicine | DX: E78.5 Hyperlipidemia, unspecified (principal); Z12.5 Encounter for screening for malignant neoplasm of prostate | CPT/HCPCS: 80053; 80061; G0103 ==